=== PATIENT | female | born 1990 | race Caucasian/White ===

== ENCOUNTER 2018-07-02 03:37 | Inpatient (IN) | payer BC ==
[~2018-07-02] VITALS: Ht 177.8 cm; Wt 80.9 kg
[2018-07-02] VITALS (19 sets, daily range): BP systolic 105–127; BP diastolic 49–77; PULSE 55–100; TEMP 97.3–99.6
[2018-07-02] MEDS ORDERED: PRENATAL MVI PO (04:03)
[2018-07-02] MEDS ORDERED: CLARITIN 1010 MG/TAB PO (04:04)
[2018-07-02 05:19] LABS: BASO # 0.1 (0.0-0.2); BASO % 0.4 % (0.0-2.0); EOS % 0.3 % (0-4.0); GRAN # 10.3 (1.4-6.5); GRAN % 77.5 % (42.2-75.2); HEMATOCRIT 38.8 % (37.0-47.0); HEMOGLOBIN 13.6 g/dl (12.5-16.0); LYMPH # 2.1 (1.2-3.4); LYMPH % 15.6 % (20.0-51.0); MEAN CELL VOLUME 98 fl (80.0-100.0); MEAN CORPUSCULAR HEMOGLOBIN 34 pg (27.0-31.0); MEAN CORPUSCULAR HGB CONC 35 g/dl (33.0-37.0); MEAN PLATELET VOLUME 10.9 fl (7.4-10.4); MONO # 0.8 (0.1-0.6); MONO % 5.8 % (1.7-9.3); PLATELET COUNT 175 K/mm3 (130-400); RED BLOOD COUNT 3.98 M/mm3 (4.10-5.30); REDCELL DISTRIBUTION WIDTH-CV 11.8 % (11.5-14.5)
[2018-07-03 08:00] VITALS: BP 106/49; PULSE 64; TEMP 98.1
[2018-07-03 16:30] VITALS: BP 96/47; PULSE 64; TEMP 98.2
[2018-07-03 22:00] VITALS: BP 110/54; PULSE 59; TEMP 98.4
[2018-07-04 07:10] VITALS: BP 111/74; PULSE 65; TEMP 97.5
[2018-07-04] MEDS ORDERED: IBU800 M1 PO (10:32)
== END 2018-07-04 13:25 | disposition home or self-care (01) | DRG 807 ==
LOC: LDRO 03:37 → LDR 04:17 → OB 11:00
PROVIDERS: Obstetrics & Gynecology
PROC: 10E0XZZ Delivery of Products of Conception, External Approach (ICD-10-PCS; principal; 2018-07-02)
PROC: 0W8NXZZ Division of Female Perineum, External Approach (ICD-10-PCS; 2018-07-02)
DX: O77.0 Labor and delivery complicated by meconium in amniotic fluid (principal); Z37.0 Single live birth; Z3A.39 39 weeks gestation of pregnancy
CPT/HCPCS: J2405; J2590; J2795; J7120

== ENCOUNTER → 2018-07-06 | Outpatient (CLI) | payer BC ==
[~2018-07-06] MED LIST: CLARITIN 1010 MG/TAB PO; IBU800 M1 PO; PRENATAL MVI PO
== END ==
LOC: LDRO → OLC 10:06 → LDRO 10:06
DX: Z39.1 Encounter for care and examination of lactating mother (principal); Z71.89 Other specified counseling

== ENCOUNTER → 2018-07-13 | Outpatient (CLI) | payer BC | LOC: LAC 10:27 | DX: Z39.1 Encounter for care and examination of lactating mother (principal); Z71.89 Other specified counseling ==

== ENCOUNTER → 2018-07-20 | Outpatient (CLI) | payer BC | LOC: OLC 09:50 | DX: Z39.1 Encounter for care and examination of lactating mother (principal); Z71.89 Other specified counseling ==

== ENCOUNTER → 2018-08-10 | Outpatient (CLI) | payer BC ==
--- NOTE | 2018-08-10 12:13 | NUR ---
Lina Lott into the clinic with 5 week ols Rodo Hess for evaluation/weight check and concerns regarding continuation of sore nipples after nursing. Lina and Rodo Hess have previously been in the clinic d/t concerns with slow weight gain, decreased transfer of milk d/t nipple shield use, and sore nipples. Lina reports Rodo Hess nurses approx 9 times per day, but has recently been cluster feeding. Diapers are WNL. Rood Hess does occasionally recieve some supplemental bottles during the times he is extra fussy/cluster feeding at night. Rodo Hess's weight on 07/02/18 was 8 # 4.1 oz ( 3745 g), today's prefeed weight was noted as 12# 0.6 oz (5465 oz). While in clinic, Rodo Hess nursed for appprox 10 min off from both breasts and gained a total of 100 g. Good latch and positioning noted and audible swallows noted throughout feeding. Rodo Hess did spit up x2 after feeding which Lina reported is common. Lina c/o burning nipple pain and color changes to the nipple after nurisng. LC noted nipple to be while when Rodo Hess came off. LC discussed the possibility vasospasms with Lina and offered suggestions on treatment. No redness noted to the nipples or evidence of thrush noted to infants mouth. Lina asked LC to look at infants top lip frenulum to be thick and offered suggestions of dentists that could further evaluate it. POC: Continue to feed ad bharathi. Keep diary of how often and amount Rodo Hess is spitting up, provide this information to taker off hemp fiber at next appointment. If desired contact pediatric dentist for further evaluation of lip lip frenulum to see if it could be effecting . Apply warm compress after breastfeed/pumping to decrease pain r/t vasospasms of the nipples. Follow up with services as needed.
== END ==
LOC: LAC 10:05
DX: Z39.1 Encounter for care and examination of lactating mother (principal); Z71.89 Other specified counseling

== ENCOUNTER 2021-01-30 21:24 | Inpatient (IN) | payer BC ==
[~2021-01-30] VITALS: Ht 177.8 cm; Wt 79.5 kg
[2021-01-30 22:00] VITALS: BP 119/81; PULSE 65; TEMP 98.1
[2021-01-30 22:15] VITALS: TEMP 98.5
[2021-01-31] VITALS (11 sets, daily range): BP systolic 93–127; BP diastolic 53–63; PULSE 47–93; TEMP 97.9–98.6
[2021-01-31 00:33] LABS: BASO % 0.3 % (0.0-2.0); EOS % 0.1 % (0-4.0); GRAN # 11.3 (1.4-6.5); GRAN % 78.9 % (42.2-75.2); HEMOGLOBIN 11.9 g/dl (12.5-16.0); LYMPH % 13.9 % (20.0-51.0); MEAN CELL VOLUME 97 fl (80.0-100.0); MEAN CORPUSCULAR HEMOGLOBIN 33 pg (27.0-31.0); MEAN CORPUSCULAR HGB CONC 34 g/dl (33.0-37.0); MEAN PLATELET VOLUME 10.6 fl (7.4-10.4); MONO # 0.9 (0.1-0.6); MONO % 6.2 % (1.7-9.3); PLATELET COUNT 200 K/mm3 (130-400); RED BLOOD COUNT 3.58 M/mm3 (4.10-5.30); REDCELL DISTRIBUTION WIDTH-CV 12.6 % (11.5-14.5)
[2021-01-31 00:36] LABS: HEMATOCRIT 34.7 % (37.0-47.0)
--- NOTE | 2021-01-31 04:03 | NUR ---
PRADEEP SIMONS AT BEDSIDE
--- NOTE | 2021-01-31 04:04 | NUR ---
DIFFICULTY TRACING DUE TO MATERNAL POSITION DURING EPIDURAL. RN AT BEDSIDE
[2021-02-01] MEDS ORDERED: MOTRIN 600600 MG/TAB PO (08:10)
[2021-02-01 08:22] VITALS: BP 128/74; PULSE 70; TEMP 97.1
== END 2021-02-01 12:23 | disposition home or self-care (01) | DRG 807 ==
LOC: LDRO 21:24 → LDR 23:29 → OB 23:29
PROVIDERS: Obstetrics & Gynecology; ADMIT Obstetrics & Gynecology
PROC: 10E0XZZ Delivery of Products of Conception, External Approach (ICD-10-PCS; principal; 2021-01-30)
DX: O99.02 Anemia complicating childbirth (principal); Z37.0 Single live birth; D64.9 Anemia, unspecified; Z3A.38 38 weeks gestation of pregnancy; O99.284 Endocrine, nutritional and metabolic diseases complicating childbirth; E06.3 Autoimmune thyroiditis
CPT/HCPCS: J2590; J7120

== ENCOUNTER → 2021-02-08 | Outpatient (CLI) | payer BC ==
[~2021-02-08] MED LIST changes: +MOTRIN 600600 MG/TAB PO
--- NOTE | 2021-02-08 13:16 | NUR ---
Pt, Lina Lott,presents for outpatient consult with 8 day old baby boy, Leo Lott, because she is not getting Leo to latch. Leo was born on [birth year] and weighed 7#6oz (3345 gms). She states he was latching in the hospital but it was not a good latch. ONce milk supply increased latching became more difficult. She has been pumping and bottle feeding Leo. Leo drinks ~ 2oz every 2-3 hours. Pt is able to collect 3-4oz with pumping every 3 hours. At this appt, Pt latches baby to breast, but does not assist him to get a full latch. He releases easily. Pt is advised on off-center latching and compressing the areola into his mouth for a deeper latch. Although Leo's effort did not appear to be vigerous, he gain 50gms (1.7oz) from the right breast. On the left breast the nipple inverts more so getting latched took more assistance. Pt instructed on technique to help pop the nipple out a little better. Leo has an addtional gain of 12 gms (0.5oz) for a total of 62 gms (2.2oz). POC: Continue working with techniques reviewed at this consult. If unable to latch successfully, continue with pumping and bottle feeding. F/U: As scheduled with Dr. Lane, pt may contact this LC for more hands-on help as needed. Questions invited and answered.
== END ==
LOC: LAC 12:55
DX: Z39.1 Encounter for care and examination of lactating mother (principal); Z71.89 Other specified counseling

== ENCOUNTER 2022-04-10 08:57 | Emergency (ER) | payer BC ==
[~2022-04-10] VITALS: Ht 177.8 cm; Wt 72.7 kg
[2022-04-10 09:37] LABS: BASO % 0.7 % (0.0-2.0); EOS # 0.1 K/mm3 (0.0-0.7); EOS % 1.5 % (0.0-4.0); GRAN # 3.1 K/mm3 (1.4-6.5); GRAN % 67.6 % (42.2-75.2); HEMOGLOBIN 12.8 g/dl (12.5-16.0); LYMPH # 1.1 K/mm3 (1.2-3.4); LYMPH % 23.4 % (20.0-51.0); MEAN CELL VOLUME 96 fl (80.0-100.0); MEAN CORPUSCULAR HEMOGLOBIN 33 pg (27-31); MEAN CORPUSCULAR HGB CONC 35 g/dl (33.0-37.0); MEAN PLATELET VOLUME 10.1 fl (7.4-10.4); MONO # 0.3 K/mm3 (0.1-0.6); MONO % 6.6 % (1.7-9.3); PLATELET COUNT 175 K/mm3 (130-400); RED BLOOD COUNT 3.86 M/mm3 (4.10-5.30); REDCELL DISTRIBUTION WIDTH-CV 11.9 % (11.5-14.5)
[2022-04-10 09:39] LABS: HEMATOCRIT 36.9 % (37.0-47.0)
[2022-04-10 09:59] LABS: COLLECTION METHOD CLEAN CATCH
[2022-04-10 10:08] LABS: ALBUMIN 4.3 gm/dL (3.5-5.0); BILIRUBIN,TOTAL 1.1 mg/dL (0.2-1.2); C-REACTIVE PROTEIN 0.04 mg/dL (0.00-0.50); CALCIUM 9.3 mg/dL (8.4-10.2); CREATININE, serum 0.87 mg/dL (0.57-1.11); POTASSIUM 4.1 mmol/L (3.5-4.5); TOTAL PROTEIN 7.1 gm/dL (6.2-8.1)
[2022-04-10 10:19] LABS: SQUAMOUS EPITHELIAL 0-2 /hpf (0-10); URINE BACTERIA Rare /hpf (NONE SEEN); URINE RBC None Seen /hpf (0-2)
[2022-04-10 10:31] LABS: PH 7.5 (5-8); URINE APPEARANCE Clear (CLEAR/HAZY); URINE COLOR Yellow (YELLOW); URINE GLUCOSE Negative (NEGATIVE); URINE KETONE Negative (NEGATIVE); URINE PROTEIN(semi-quant) Negative (NEGATIVE)
[2022-04-10 10:32] LABS: URINE BLOOD TRACE-INTACT (NEGATIVE); URINE NITRATE Negative (NEGATIVE); URINE UROBILINOGEN 0.2 (NEGATIVE)
[2022-04-10] MEDS ORDERED: ZOFRAN ODT4 MG PO (10:37)
[2022-04-10] MEDS ORDERED: NORCO 325 MG-51 TAB PO (10:37)
[2022-04-10 10:56] VITALS: BP 110/80; PULSE 55; TEMP 98.6
== END 2022-04-10 10:56 | disposition home or self-care (01) ==
LOC: COL.ER 08:57
PROVIDERS: Family Medicine
DX: K29.70 Gastritis, unspecified, without bleeding (principal); Z32.02 Encounter for pregnancy test, result negative; Z20.822 Contact with and (suspected) exposure to COVID-19
CPT/HCPCS: C9113; J2405; J7120

== ENCOUNTER 2023-11-03 07:49 | Day surgery (SDC) | payer BC ==
[~2023-11-03] VITALS: Ht 170.2 cm; Wt 80.0 kg
[~2023-11-03 07:49] MED LIST changes: +MICONAZOLE 200 MG; +NORCO 325 MG-51 TAB PO; +ZOFRAN ODT4 MG PO
[2023-11-03 07:57] VITALS: BP 97/59; PULSE 69; TEMP 97.7
--- NOTE | 2023-11-03 09:25 | NUR ---
SEE MERGE FOR PROCEDURE DOCUMENTATION. PT REQUEST FOR NO MODERATE SEDATION, LOCAL ANESTHETIC ONLY R/T STATUS.
[2023-11-03] MEDS ORDERED: ceFAZolin 1 G in Water For Injection,Sterile 10 ML IR SCH (09:42)
[2023-11-03] MEDS ORDERED: NS 100 ML IR SCH (09:42)
[2023-11-03 10:05] VITALS: BP 103/60; PULSE 70
--- NOTE | 2023-11-03 10:05 | NUR ---
PT RETURNED FROM DIRECTOR OF CLAIMS VIA BED, NO SEDATION GIVEN, DRESSING UNDER LEFT BREAST IS CLEAN AND DRY, VSS. PT TAKES WATER, HAS NO C/O PAIN UP TO B/R, GATE STEADY, WILL MONITOR FOR DISCHARGE INST. AND ORDER
--- NOTE | 2023-11-03 10:11 | NUR ---
PATIENT TOLERATED PROCEDURE WELL, ALERT AND ORIENTED, DENIES PAIN. PATIENT TRANSFERRED INDEPENDENTLY TO BED AND TRANSPORTED TO [facility]. VITAL SIGNS TAKEN ON ARRIVAL, VSS. SITE ASSESSED, DRESSING CDI. TRANSFER OF CARE TO [facility]. CALL LIGHT WITHIN REACH, BED IN LOWEST POSITION, X3 BEDRAILS IN PLACE.
--- NOTE | 2023-11-03 10:50 | NUR ---
discharge inst. given to pt on next appt and care of site with verbal understanding. pt discharged amb.
== END 2023-11-03 10:50 | disposition home or self-care (01) ==
LOC: COL.CAR 07:49
DX: O99.412 Diseases of the circulatory system complicating pregnancy, second trimester (principal); Z45.09 Encounter for adjustment and management of other cardiac device; Z3A.27 27 weeks gestation of pregnancy
CPT/HCPCS: J0690

== ENCOUNTER 2024-04-03 17:19 | Emergency (ER) | payer BC ==
[~2024-04-03] VITALS: Ht 175.3 cm; Wt 75.0 kg
[2024-04-03 17:40] VITALS: BP 115/80; TEMP 98.6
[2024-04-03 20:22] VITALS: PULSE 59
== END 2024-04-03 20:21 | disposition home or self-care (01) ==
LOC: COL.ER 17:19
DX: I97.621 Postprocedural hematoma of a circulatory system organ or structure following other procedure (principal)